=== PATIENT | male | born 1985 | race Two or more races ===

== ENCOUNTER 2021-03-23 19:39 | Emergency (ER) | payer OTHER ==
[~2021-03-23] VITALS: Ht 172.7 cm; Wt 93.0 kg
== END 2021-03-24 03:39 | disposition home or self-care (01) ==
LOC: ER 19:39
DX: R10.84 Generalized abdominal pain (principal); K50.90 Crohn's disease, unspecified, without complications; K52.9 Noninfective gastroenteritis and colitis, unspecified; I88.9 Nonspecific lymphadenitis, unspecified